=== PATIENT | male | born 1990 | race Caucasian/White ===

== ENCOUNTER 2016-12-06 17:35 | Emergency (ER) | payer OTHER ==
[~2016-12-06] VITALS: Ht 175.3 cm; Wt 80.0 kg
[2016-12-06 22:31] VITALS: BP 121/81
== END 2016-12-06 22:33 | disposition home or self-care (01) ==
LOC: ER 17:36
DX: G93.89 Other specified disorders of brain (principal); S39.012A Strain of muscle, fascia and tendon of lower back, initial encounter; S16.1XXA Strain of muscle, fascia and tendon at neck level, initial encounter; V49.49XA Driver injured in collision with other motor vehicles in traffic accident, initial encounter; Y93.89 Activity, other specified; Y92.410 Unspecified street and highway as the place of occurrence of the external cause; Z98.2 Presence of cerebrospinal fluid drainage device
CPT/HCPCS: 70450; 72100; 72125; 99284